=== PATIENT | female | born 1985 | race Caucasian/White ===

== ENCOUNTER 2017-04-19 15:16 | Emergency (ER) | payer BC ==
[2017-04-19 15:35] VITALS: BP 110/67
--- NOTE | 2017-04-19 16:39 | XRay Report ---
RIGHT SHOULDER: Trauma, pain. Routine views demonstrate normal bony and soft tissue structures with normal joint alignment of the shoulder. IMPRESSION: Normal study.
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
== END 2017-04-19 18:42 | disposition home or self-care (01) ==
LOC: ED 15:16
DX: S49.91XA Unspecified injury of right shoulder and upper arm, initial encounter (principal); Y04.0XXA Assault by unarmed brawl or fight, initial encounter; Y93.89 Activity, other specified; Y99.8 Other external cause status; Y92.89 Other specified places as the place of occurrence of the external cause

== ENCOUNTER 2017-10-23 19:47 | Emergency (ER) | payer OTHER, BC ==
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
[2017-10-24 02:29] VITALS: BP 108/60
== END 2017-10-24 02:17 | disposition home or self-care (01) ==
LOC: ED 19:47
DX: M25.511 Pain in right shoulder (principal); G44.209 Tension-type headache, unspecified, not intractable; V49.49XA Driver injured in collision with other motor vehicles in traffic accident, initial encounter; Y93.89 Activity, other specified; Y92.89 Other specified places as the place of occurrence of the external cause; Y99.8 Other external cause status
CPT/HCPCS: 99282